=== PATIENT | female | born 1960 | race Caucasian/White ===

== ENCOUNTER → 2017-01-10 | Outpatient (CLI) | payer OTHER ==
[~2017-01-10] MED LIST: ASPI81TA81; CALC1TAB19 PO; CARI350T20 PO; CASC450C; DIAZ10TA PO; FERR1TAB36 PO; HYDR-3583 PO; IBUP200T2 PO; KELP150T PO; MAGN1TAB14 PO; MULT1TAB46; OSTETAB PO; SOMA350T PO; TRAZ100T4 PO; TRAZ1TAB45 PO; ZOLP10TA3 PO
[2017-01-10 10:08] LABS: AUTOMATED NEUTROPHIL # 4.4 TH/MM3 (1.8-7.7); BASOPHIL % 0.5 % (0.0-2.0); EOSINOPHIL # 0.1 TH/MM3 (0-0.4); HEMATOCRIT 41.4 % (35.0-46.0); HEMO FLAGS DIFF FINAL; LYMPH % 35.9 % (9.0-44.0); LYMPHOCYTE # 2.9 TH/MM3 (1.0-4.8); MEAN CELL VOLUME 87.8 FL (80.0-100.0); MEAN CORPUSCULAR HEMOGLOBIN 29.4 PG (27.0-34.0); MEAN CORPUSCULAR HGB CONC 33.5 % (32.0-36.0); MONO % 7.6 % (0.0-8.0); PLATELET COUNT 161 TH/MM3 (150-450); RED BLOOD COUNT 4.71 MIL/MM3 (4.00-5.30); RED CELL DISTRIBUTION WIDTH 13.7 % (11.6-17.2)
[2017-01-10 10:40] LABS: RHEUMATOID FACTOR TRIGGER LESS THAN 10.0 IU/ML (0.0-14.9)
[2017-01-10 10:42] LABS: ALKALINE PHOSPHATASE 102 U/L (45-117); ALT (GPT) 29 U/L (10-53); ANION GAP 8 MEQ/L (5-15); AST (GOT) 19 U/L (15-37); BICARBONATE 28.3 MEQ/L (21.0-32.0); BLOOD UREA NITROGEN 12 MG/DL (7-18); CHLORIDE 99 MEQ/L (98-107); GLOMERULAR FILTRATION RATE 71 ML/MIN (>89); GLUCOSE,FASTING 109 MG/DL (74-99); HDL CHOLESTEROL 46.3 MG/DL (40.0-60.0); LDL CHOLESTEROL 132 MG/DL (0-99); POTASSIUM 4.3 MEQ/L (3.5-5.1); SODIUM (NA) 135 MEQ/L (136-145); TOTAL BILIRUBIN ADULT 0.5 MG/DL (0.2-1.0)
== END ==
LOC: CLAB 08:53
PROVIDERS: ATTEND Family Medicine
DX: M06.9 Rheumatoid arthritis, unspecified (principal); M19.90 Unspecified osteoarthritis, unspecified site; F41.9 Anxiety disorder, unspecified; E66.9 Obesity, unspecified
CPT/HCPCS: 36415; 80053; 80061; 84443; 85025; 86430

== ENCOUNTER 2017-04-09 15:17 | Emergency (ER) | payer OTHER ==
[~2017-04-09 15:17] MED LIST changes: -CARI350T20 PO; -CASC450C; -FERR1TAB36 PO; -KELP150T PO; -OSTETAB PO; -TRAZ100T4 PO
[2017-04-09 15:22] VITALS: BP 140/85; PULSE 84; RESP 15; TEMP 98.2; O2SAT 98
== END 2017-04-09 18:27 | disposition left against medical advice (07) ==
LOC: NED 15:17
DX: Z04.1 Encounter for examination and observation following transport accident (principal); Z53.21 Procedure and treatment not carried out due to patient leaving prior to being seen by health care provider
CPT/HCPCS: 99281

== ENCOUNTER 2017-04-09 17:52 | Emergency (ER) | payer OTHER ==
[~2017-04-09] VITALS: Ht 167.6 cm; Wt 100.8 kg
[2017-04-09 17:57] VITALS: BP 154/98; PULSE 68; RESP 17; TEMP 98.1; O2SAT 96
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
[2017-04-09] MEDS ORDERED: KETOROLAC TROMETHAMINE 60 MG/2 ML (IM) VIAL IM ONE (18:15)
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
== END 2017-04-09 19:13 | disposition home or self-care (01) ==
LOC: PHEFT 17:52
DX: R07.81 Pleurodynia (principal); M54.2 Cervicalgia; M25.561 Pain in right knee; M25.562 Pain in left knee; M25.572 Pain in left ankle and joints of left foot; F17.200 Nicotine dependence, unspecified, uncomplicated; Z87.39 Personal history of other diseases of the musculoskeletal system and connective tissue; V89.2XXA Person injured in unspecified motor-vehicle accident, traffic, initial encounter
CPT/HCPCS: 71010; 96372; 99284; J1885